=== PATIENT | female | born 1980 | race Caucasian/White ===

== ENCOUNTER → 2016-02-29 | Outpatient (CLI) | payer OTHER ==
[~2016-02-29] MED LIST: LANS30TA3 PO; NRT1/35 PO; OXYC-57 PO; OXYC10SO PO
== END | disposition home or self-care (01) ==
LOC: C.LAB 10:56
PROVIDERS: ATTEND Family Medicine
DX: K80.50 Calculus of bile duct without cholangitis or cholecystitis without obstruction (principal)

== ENCOUNTER → 2016-03-01 | Outpatient (CLI) | payer OTHER ==
--- NOTE | 2016-03-01 08:11 | DIAGNOSTIC IMAGING REPORT ---
ABDOMINAL ULTRASOUND, RIGHT UPPER QUADRANT HISTORY: Biliary colic. COMPARISON: Abdominal ultrasound October 10, 2014. FINDINGS: Liver morphology is normal. There is a 4 mm calcification within the right hepatic lobe. There is no biliary ductal dilatation. No gallstones are identified. There is a 7 mm gallbladder polyp. This is either stable or slightly increased in size since exam of October 10, 2014 when it measured approximately 5 mm. There is no gallbladder wall thickening. The pancreas is sonographically normal. There is no right hydronephrosis. IMPRESSION: 1. No gallstones or biliary ductal dilatation. 2. 7 mm gallbladder polyp. This is either stable or minimally increased in size since exam of October 10, 2014. This is likely benign but a follow-up ultrasound in one year is recommended.. Electronically signed by: Iftikhar Guy M.D. 03/01/2016 8:10 AM Dictated Date/Time: 03/01/2016 8:07 AM
== END | disposition home or self-care (01) ==
LOC: C.ULTR 06:40
PROVIDERS: ATTEND Family Medicine
DX: K80.50 Calculus of bile duct without cholangitis or cholecystitis without obstruction (principal); K82.4 Cholesterolosis of gallbladder

== ENCOUNTER → 2016-03-14 | Outpatient (CLI) | payer OTHER ==
[~2016-03-14] MED LIST changes: -LANS30TA3 PO; -NRT1/35 PO
--- NOTE | 2016-03-14 15:53 | DIAGNOSTIC IMAGING REPORT ---
MRI OF THE LUMBAR SPINE WITHOUT CONTRAST CLINICAL HISTORY: Lumbar pain radiating into right lower extremity. COMPARISON STUDY: No previous studies for comparison. TECHNIQUE: Utilizing a 1.5 Edelmira magnet and dedicated coil, multiplanar, multiecho imaging of the lumbar spine was performed without IV contrast. FINDINGS: For purposes of numbering on this exam, the L5-S1 disc space is assigned to axial image 27 of 30. Alignment of the lumbar spine is anatomic. Vertebral body heights are maintained. No marrow replacement is present. There is no intracanalicular mass or fluid collection. The conus terminates at the L1-L2 level. Paravertebral soft tissues are unremarkable. L1-2: The central canal and neural foramen are patent. L2-3: The central canal and neural foramen are patent. L3-4: The central canal and neural foramen are patent. L4-5: The central canal and neural foramen are patent L5-S1: The central canal and neural foramen are patent. IMPRESSION: Unremarkable MRI of the lumbar spine. No central canal or neural foraminal stenosis. No disc herniation. Electronically signed by: Iftikhar Guy M.D. 03/14/2016 3:51 PM Dictated Date/Time: 03/14/2016 3:45 PM
== END | disposition home or self-care (01) ==
LOC: C.MRI 14:41
PROVIDERS: ATTEND Orthopaedic Surgery Orthopaedic Surgery of the Spine
DX: M54.5 Low back pain (principal)

== ENCOUNTER → 2016-03-21 | Day surgery (SDC) | payer OTHER ==
[2016-03-12 15:36] VITALS: BMI 21.0
[2016-03-15 15:44] LABS: BASO % 0.1 %; BASO ABS # 0.01 K/uL (0-0.2); COMPLETE YES; EOS % 0.9 %; HEMATOCRIT 40.5 % (37-47); IG% 0.1 %; LYMPH % 39.1 %; MEAN CELL VOLUME 93.1 fL (80-100); MEAN CORPUSCULAR HEMOGLOBIN 31.7 pg (25-34); MEAN CORPUSCULAR HGB CONC 34.1 g/dl (32-36); MEAN PLATELET VOLUME 9.8 fL (7.4-10.4); MONO % 6.6 %; NEUT % 53.2 %; PLATELET COUNT 224 K/uL (130-400); RED BLOOD COUNT 4.35 M/uL (4.2-5.4); WHITE BLOOD COUNT 7.93 K/uL (4.8-10.8)
[2016-03-15 16:14] LABS: BUN/CREATININE RATIO 8.8 (10-20); CALCIUM 8.8 mg/dl (8.5-10.1); CREATININE 0.81 mg/dl (0.60-1.20); POTASSIUM 3.5 mmol/L (3.5-5.1)
[~2016-03-21] VITALS: Ht 172.7 cm; Wt 56.8 kg
[~2016-03-21] MED LIST changes: +CONRAY 60% 50 ML VIAL INSTIL ONE; +DEXAMETHASONE SOD INJ 4 MG/ML VIAL ONE; +EpHEDrine SULFATE INJ 50 MG/ML AMP ONE; +FENTANYL CITRATE INJ 50 MCG/1 ML 2 ML VIAL ONE; +GLYCOPYRROLATE INJ 0.2 MG/ML VIAL ONE; +KETOROLAC TROMETHAMINE 30 MG/ML VIAL IV. PRN; +LACTATED RINGER'S 1000ML 1,000 ML IV PRN; +LACTATED RINGER'S 1000ML 1,000 ML IV SCH; +LIDOCAINE HCL 2% 2 ML VIAL (20MG/ML) ONE; +LIDOCAINE/EPINEPHRINE 1% 20 ML VIAL INJ ONE; +METOCLOPRAMIDE HCL INJ 5 MG/ML 2 ML VIAL ONE; +MIDAZOLAM HCL 1 MG/ML 2ML VIAL ONE; +MoRPHine SULFATE 2 MG/ML CARP IV PRN; +NEOSTIGMINE METHYLSULFATE 5 MG/5 ML SYR ONE; +ONDANSETRON INJ 2 MG/ML 2 ML VIAL IV PRN; +ONDANSETRON INJ 2 MG/ML 2 ML VIAL ONE; +OXYCODONE HCL SOLN 5 MG/5 ML UDC PO PRN; +OXYCODONE/ACETAMINOPHEN 5-325 TAB PO PRN; +PHENYLEPHRINE HCL INJ 10 MG/ML VIAL ONE; +PROPOFOL IV EMULSION 10 MG/ML 20 ML VIAL IV ONE; +ROCURONIUM BROMIDE 10 MG/ML 5 ML VIAL ONE; +SCOPOLAMINE 1.5 MG TDSY TD ONE; +SUCCINYLCHOLINE CHLORIDE 20 MG/ML 10 ML VIAL IV ONE
[2016-03-21 07:17] VITALS: BP 97/71; PULSE 75; TEMP 36.7; O2SAT 99; Ht 172.7 cm; Wt 56.8 kg
--- NOTE | 2016-03-21 07:42 | History & Physical Bridge Note ---
H&P Re-Evaluation Bridge Note: I have examined the patient, reviewed the History & Physical and in the interval since the performance of the History & Physical I have noted the following changes of clinical significance: No changes noted SO at bedside
--- NOTE | 2016-03-21 09:30 | [facility] Post Operative Brief Note ---
Immediate Operative Summary Operative Date Mar 21, 2016. Pre-Operative Diagnosis Gallbladder polyp Post-Operative Diagnosis Same Procedure(s) Performed Laparoscopic Cholecystectomy with Cholangiogram Surgeon Dr Johansen [employer] Surgeon(s) Danie Abarca PA-C Estimated Blood Loss 5ML Findings cc Specimens A. gallbladder
--- NOTE | 2016-03-21 09:35 | Discharge Instructions ---
Discharge Instructions Visit Reason for Visit: Gallbladder Polyp Discharge Discharge Diagnosis / Problem: laparoscopic cholecystectomy Discharge Goals Goal(s): Decrease discomfort Activity Recommendations Activity Limitations: per Instructions/Follow-up section Lifting Limitations: no more than 10 pounds Shower/Bathe: tomorrow Driving or Machine Use: resume 3 days after discharge Anesthesia . Post Anesthesia Instructions: If you have had General Anesthesia or IV Sedation: * Do not drive today. * Resume driving when surgeon permits. * Do not make important decisions or sign legal documents today. * Call surgeon for: 1. Temperature elevations greater than 101 degrees F. 2. Uncontrollable pain. 3. Excessive bleeding. 4. Persistent nausea and vomiting. 5. Medication intolerance (nausea, vomiting or rash). * For nausea and vomiting use only clear liquids such as: tea, soda, bouillon until nausea subsides, then gradually increase diet as tolerated. * If you have any concerns or questions, call your surgeon's office. If physician is unavailable and it is an emergency, call 911 or go to the nearest emergency room. . Instructions / Follow-Up Instructions / Follow-Up Dr. Johansen in 1 week, call [phone] if you do not already have an appt Diet Recommendations Recommended Home Diet: no limitations Procedures Procedures Performed: Laparoscopic Cholecystectomy with Cholangiogram Pending Studies Studies pending at discharge: no Medical Emergencies . Who to Call and When: Medical Emergencies: If at any time you feel your situation is an emergency, please call 911 immediately. . Non-Emergent Contact Non-Emergency issues call your: Surgeon Call Non-Emergent contact if: you have a fever, temperature is above 101.5, your pain is not controlled . . "Provider Documentation" section prepared by Danie Abarca.
[2016-03-21] MEDS: FENTANYL CITRATE INJ 50 MCG/1 ML 2 ML VIAL IV PRN ×3 (10:01→10:11)
--- NOTE | 2016-03-21 10:01 | OPERATIVE REPORT ---
DATE OF OPERATION: 03/21/2016 PREOPERATIVE DIAGNOSIS: Chronic cholecystitis, polyp in the gallbladder. POSTOPERATIVE DIAGNOSIS: Same. PROCEDURE: Laparoscopic cholecystectomy, intraoperative cholangiogram. SURGEON: Dr. Johansen. MECHANICAL PROJECT ENGINEER: Emmanuel Abarca PA-C. OPERATION AND FINDINGS: SUMMARY: After induction of general endotracheal anesthesia, the patient's abdomen was prepped with Betadine solution and properly draped. A small incision made transversely supraumbilically sufficient enough to place a Veress needle followed by CO2 followed by 5 mm trocar. Point of entry inspected and no injury identified. Under direct visualization, we then looked at the right upper quadrant and placed a 5 mm epigastric port with preemptive local analgesia 1% Xylocaine without epinephrine and 2 other subcostal ports, 1 just lateral to the rectus abdominis, 1 towards the flank. The liver was grossly normal. We took pictures of this area. We also placed a camera in subcostal area to look at the umbilical entry site. There were no adhesions there. The pelvis was free of any gross pathology, some pictures were taken at the patient's request. At this point then we elevated the liver. We identified the gallbladder. The wall was thickened more than normal. As we elevated up the distal portion of the gallbladder towards the triangle of Calot had multiple adhesions, some of these were quite thickened to the omentum. These were taken down by sharp and blunt dissection. Once we were able then to identify and create a window in the triangle of Calot, identified the lymph node. We identified the artery and doubly clipped it proximally and once distally and divided. This was well taken off right at the edge of the gallbladder. Then the cystic duct we tried to dissect out, it was very scarred in. We stayed close to the gallbladder. We were able then to create a window more posteriorly, finally able to place the clips. A small opening in the cystic duct was made at its takeoff. A #4 urethral catheter transversing abdominal wall was positioned in the cystic duct. Serial x-rays were taken. First of all showed a corkscrew cystic duct right at the beginning and we could see the common bile duct distally without any obstruction. We could feel the proximal end without any evidence of any obstruction. I could not feel the hepatic bifurcation significant enough, but what we could see may have been a little bit just fluid imaging, it was a little narrowed but this was well up into the bifurcation. At this point we removed the cystic duct catheter and doubly clipped the cystic duct, then took out the gallbladder in the antegrade fashion using electrocautery, leaving the posterior peritoneum. We never entered really the liver parenchyma at all. Once the gallbladder was elevated almost off the liver another picture was taken. We then amputated the gallbladder off the liver and placed it in an Endopouch and taken out intact through the epigastric port. At this point, suctioned out subhepatically and suprahepatically, hemostasis was excellent. We placed a camera again in the subcostal port as we took out the umbilical trocar and there was no bleeding appreciated. No bleeding was appreciated with any of the port sites. I did place an 0 Vicryl suture as 0 vycril suture in the epigastric area even though we used a 5 mm trocar, 4-0 Monocryl and Steri-Strips applied. The procedure was tolerated well by the patient and was taken to recovery room in good condition. I attest to the content of the Intraoperative Record and any orders documented therein. Any exceptions are noted below. CLIFF
--- NOTE | 2016-03-21 10:10 | DIAGNOSTIC IMAGING REPORT ---
INTRAOPERATIVE RADIOGRAPHS CLINICAL HISTORY: Intraoperative cholangiogram. Fluoroscopy time: 7 seconds. FINDINGS: 5 spot fluoroscopic views of the right upper quadrant from an intravenous cholangiogram are presented. Correlation is made with abdominal ultrasound dated 03/01/2016. The gallbladder surgically absent. There is smooth contrast opacification of the common bile duct which is normal in caliber. There are no filling defects identified to suggest choledocholithiasis. There is free spillage of contrast into the duodenum. There is mild focal dilatation of the common hepatic duct. Focal narrowing is suggested at the junction of the right and left hepatic ducts. The intrahepatic bile ducts are normal in caliber. IMPRESSION: 1. There is no evidence of choledocholithiasis. 2. There is focal cystic dilatation of the common hepatic duct. This may represent a choledochal cyst. 3. There is questionable focal narrowing of the common hepatic duct at the junction of the right and left hepatic ducts. This is of indeterminant significance. Consider follow-up with ERCP for further assessment and to exclude the possibility of an underlying mass lesion. Electronically signed by: Pj Encarnacion M.D. 03/21/2016 10:08 AM Dictated Date/Time: 03/21/2016 10:04 AM
--- NOTE | 2016-03-21 10:24 | Anesthesiology Progress Note ---
Anesthesia Post Op Note Date & Time Mar 21, 2016 at 10:24 Vital Signs Pain Intensity: 5.0 Vital Signs Past 12 Hours Date Time Temp Pulse Resp B/P Pulse Ox O2 Delivery O2 Flow Rate FiO2 03/21/16 10:10 88 12 106/61 96 Room Air 03/21/16 10:00 96 18 114/64 100 Mask 10 03/21/16 09:50 108 11 115/65 100 Mask 10 03/21/16 09:43 36.7 118 16 114/67 100 Mask 10 03/21/16 07:17 36.7 75 20 97/71 99 Room Air Notes Mental Status: alert / awake / arousable, participated in evaluation Pt Amnestic to Procedure: Yes Nausea / Vomiting: adequately controlled Pain: adequately controlled, improving with treatment Airway Patency, RR, SpO2: stable & adequate BP & HR: stable & adequate Hydration State: stable & adequate Anesthetic Complications: no major complications apparent Pt doing well. Pain now tolerable.
[2016-03-21 10:40] VITALS: BP 120/60; PULSE 99; TEMP 36.8; O2SAT 98
[2016-03-21 11:10] VITALS: BP_SYST 115; BP_SYST 117; BP_DIAS 68; BP_DIAS 71; PULSE 88; PULSE 99; TEMP 36.5; TEMP 36.6; O2SAT 98; O2SAT 99
[2016-03-21 11:40] VITALS: BP 115/68; PULSE 88; TEMP 36.6; O2SAT 98
[2016-03-21 12:20] VITALS: BP 118/71; PULSE 86; TEMP 36.6; O2SAT 97
== END | disposition home or self-care (01) ==
LOC: C.ACU 06:48
PROVIDERS: ATTEND Surgery
DX: K82.4 Cholesterolosis of gallbladder (principal); K81.1 Chronic cholecystitis; N80.9 Endometriosis, unspecified; N87.0 Mild cervical dysplasia; Z82.49 Family history of ischemic heart disease and other diseases of the circulatory system; Z83.518 Family history of other specified eye disorder; K21.9 Gastro-esophageal reflux disease without esophagitis; N83.209 Unspecified ovarian cyst, unspecified side

== ENCOUNTER → 2016-04-09 | Outpatient (CLI) | payer OTHER ==
[~2016-04-09] MED LIST changes: -CONRAY 60% 50 ML VIAL INSTIL ONE; -DEXAMETHASONE SOD INJ 4 MG/ML VIAL ONE; -EpHEDrine SULFATE INJ 50 MG/ML AMP ONE; -FENTANYL CITRATE INJ 50 MCG/1 ML 2 ML VIAL ONE; -GLYCOPYRROLATE INJ 0.2 MG/ML VIAL ONE; -KETOROLAC TROMETHAMINE 30 MG/ML VIAL IV. PRN; -LACTATED RINGER'S 1000ML 1,000 ML IV PRN; -LACTATED RINGER'S 1000ML 1,000 ML IV SCH; -LIDOCAINE HCL 2% 2 ML VIAL (20MG/ML) ONE; -LIDOCAINE/EPINEPHRINE 1% 20 ML VIAL INJ ONE; -METOCLOPRAMIDE HCL INJ 5 MG/ML 2 ML VIAL ONE; -MIDAZOLAM HCL 1 MG/ML 2ML VIAL ONE; -MoRPHine SULFATE 2 MG/ML CARP IV PRN; -NEOSTIGMINE METHYLSULFATE 5 MG/5 ML SYR ONE; -ONDANSETRON INJ 2 MG/ML 2 ML VIAL IV PRN; -ONDANSETRON INJ 2 MG/ML 2 ML VIAL ONE; -OXYC-57 PO; -OXYCODONE HCL SOLN 5 MG/5 ML UDC PO PRN; -OXYCODONE/ACETAMINOPHEN 5-325 TAB PO PRN; -PHENYLEPHRINE HCL INJ 10 MG/ML VIAL ONE; -PROPOFOL IV EMULSION 10 MG/ML 20 ML VIAL IV ONE; -ROCURONIUM BROMIDE 10 MG/ML 5 ML VIAL ONE; -SCOPOLAMINE 1.5 MG TDSY TD ONE; -SUCCINYLCHOLINE CHLORIDE 20 MG/ML 10 ML VIAL IV ONE
--- NOTE | 2016-04-09 15:40 | DIAGNOSTIC IMAGING REPORT ---
CT OF THE CHEST WITHOUT IV CONTRAST CLINICAL HISTORY: Lung nodule. COMPARISON STUDY: Chest CT October 13, 2009. CT DOSE: 303.79 mGy.cm TECHNIQUE: Axial images of the chest were obtained without IV contrast. Images were reviewed in the axial, sagittal, and coronal planes. IV contrast was not administered for this examination. FINDINGS: No enlarged axillary, mediastinal or hilar lymph nodes are present. The size of the heart is normal. There is no pericardial effusion. Central airways are patent. There is no consolidation to suggest pneumonia. Mild biapical opacities suggest scarring. A 4 mm subpleural nodule within the left lower lobe shown on image 222. In [address] of October 13, 2009. A 3 mm subpleural nodule within the left lower lobe shown on image 106 is also unchanged. No new nodules are identified. There is no pneumothorax or pleural effusion. The bony thorax is unremarkable. A calcified granuloma within the spleen is noted as well as a calcified granuloma within the right hepatic lobe. The gallbladder is surgically absent. IMPRESSION: No change in 2 left lower lobe subpleural nodules since CT of October 13, 2009. Stability over this time period is consistent with a benign etiology. Electronically signed by: Iftikhar Guy M.D. 04/09/2016 3:39 PM Dictated Date/Time: 04/09/2016 3:33 PM
== END | disposition home or self-care (01) ==
LOC: C.CTS 15:21
PROVIDERS: ATTEND Family Medicine
DX: R91.8 Other nonspecific abnormal finding of lung field (principal)

== ENCOUNTER → 2016-06-06 | Outpatient (CLI) | payer OTHER | END | disposition home or self-care (01) | LOC: C.PAPS 10:58 | PROVIDERS: ATTEND Obstetrics & Gynecology | DX: Z12.4 Encounter for screening for malignant neoplasm of cervix (principal); Z87.42 Personal history of other diseases of the female genital tract ==

== ENCOUNTER → 2017-03-12 | Outpatient (CLI) | payer OTHER ==
[2017-03-12 14:41] LABS: HEMOGLOBIN 14.7 g/dL (12.0-16.0); MEAN CELL VOLUME 91.3 fL (80-100); MEAN CORPUSCULAR HEMOGLOBIN 31.2 pg (25-34); MEAN CORPUSCULAR HGB CONC 34.2 g/dl (32-36); MEAN PLATELET VOLUME 9.6 fL (7.4-10.4); PLATELET COUNT 252 K/uL (130-400); RED CELL DISTRIBUTION WIDTH CV 12.6 % (11.5-14.5); RED CELL DISTRIBUTION WIDTH SD 42.1 fL (36.4-46.3); WHITE BLOOD COUNT 7.74 K/uL (4.8-10.8)
[2017-03-12 15:06] LABS: ALBUMIN 4.2 gm/dl (3.4-5.0); ALT/SGPT 31 U/L (12-78); BLOOD UREA NITROGEN 9 mg/dl (7-18); CALCIUM 9.6 mg/dl (8.5-10.1); CARBON DIOXIDE 29 mmol/L (21-32); CREATININE 0.87 mg/dl (0.60-1.20); GLUCOSE 81 mg/dl (70-99); POTASSIUM 3.7 mmol/L (3.5-5.1); SODIUM 139 mmol/L (136-145)
[2017-03-12 15:16] LABS: ALKALINE PHOSPHATASE 86 U/L (45-117); AST/SGOT 23 U/L (15-37); TOTAL PROTEIN 7.4 gm/dl (6.4-8.2)
== END | disposition home or self-care (01) ==
LOC: C.LAB 13:32
PROVIDERS: ATTEND Physician Assistant
DX: I73.00 Raynaud's syndrome without gangrene (principal); R07.9 Chest pain, unspecified; L50.9 Urticaria, unspecified

== ENCOUNTER → 2017-03-14 | Outpatient (CLI) | payer OTHER ==
--- NOTE | 2017-03-14 13:33 | EXERCISE STRESS ECHO ---
*NOTICE TO RECEIVING [employer] This information is strictly Confidential and protected under [place] law. [place] law prohibits you from making any further disclosure of this information unless further disclosure is expressly permitted by the written consent of the person to whom it pertains or is authorized by law. A general authorization for the release of medical or other information is not sufficient for this purpose. Hospital accepts no responsibility if the information is made available to any other person, INCLUDING THE PATIENT. Interpretation Summary * Name: MARTINEZ CHACKO Study Date: 03/14/2017 09:35 AM BP: 89/72 mmHg * Patient Location: [facility], [place], [facility] HR: 99 * : 1980 (M/d/yyyy) Gender: Female Height: 66 in * Age: 36 yrs Ethnicity: [place] Weight: 136 lb * Ordering Physician: Nisa Chao * Referring Physician: Nisa Chao PA-C * Performed By: Martha Magaña RDCS * * Reason For Study: Chest Pain * BSA: 1.7 m2 * -- Conclusions -- * Nonischemic exercise stress test. * No arrhythmias. * Normal HR and BP response to exercise. * Average exercise tolerance. * No symptoms. * At rest, structurally normal heart. Procedure Details * ECHOEX, CPT #[id number] * ECHO DOPPLER, CPT #[id number] * ECHO COLOR FLOW, CPT #[id number] Left Ventricle * The left ventricle is normal in size. * There is normal left ventricular wall thickness. * Ejection Fraction = 55-60%. * Left ventricular systolic function is normal. * No segmental left ventricular wall motion abnormalities are noted. * The left ventricular wall motion is normal. * Resting wall motion: Normal. Stress wall motion: Appropriate increase in Left ventricular systolic function and decrease in cavity size. No stress induced segmental wall motion abnormalities. Right Ventricle * The right ventricular cavity size is normal (basal dimension <4.2 cm in right ventricular apical 4-chamber view). * The right ventricular systolic function is normal as assessed by tricuspid annular plane systolic excursion (TAPSE) (normal >1.5 cm). Atria * The left atrial size is normal. * Right atrial size is normal. * No ASD detected; PFO is not assessed. Mitral Valve * The mitral valve is normal in structure and function. Tricuspid Valve * The tricuspid valve is normal in structure and function. Aortic Valve * The aortic valve is normal in structure and function. Pulmonic Valve * The pulmonary valve is not well seen, but the Doppler examination is normal without significant regurgitation or stenosis. Great Vessels * The aortic root is normal size. Pericardium * There is no pericardial effusion. Stress Parameters * Normal baseline electrocardiogram. * Stress ECG: No ST changes. No arrhythmias. * No arrhythmia were noted with stress. * The stress portion of this study was personally supervised by the undersigned interpreting physician. * Rest heart rate was '99' BPM. * Rest blood pressure was '89/72' * Maximum heart rate achieved was 190 bpm. * Maximum heart rate was 102 % of maximum age-predicted heart rate. * Maximum blood pressure was '106/70' * Total exercise time was '10:06' * Maximum exercise MET level achieved was '11.80' METS * Maximum treadmill speed was '4.20' miles per hour. * Maximum treadmill elevation was '16.00'% grade. Left Ventricular Diastolic Function * Pulse wave TDI of the anterior and posterior mitral annulas demonstrates normal LV relaxation MMode 2D Measurements and Calculations IVSd 0.68 cm IVSs 0.76 cm LVIDd 3.7 cm LVIDs 2.5 cm LVPWd 0.70 cm LVPWs 0.97 cm IVS/LVPW 0.96 FS 33.1 % EDV(Teich) 58.8 ml ESV(Teich) 22.0 ml EF(Teich) 62.5 % EDV(cubed) 51.4 ml ESV(cubed) 15.4 ml EF(cubed) 70.0 % % IVS thick 12.7 % % LVPW thick 37.7 % LV mass(C)d 67.9 grams LV mass(C)dI 40.0 grams/m\S\2 LV mass(C)s 50.1 grams LV mass(C)sI 29.5 grams/m\S\2 SV(Teich) 36.7 ml SI(Teich) 21.6 ml/m\S\2 SV(cubed) 36.0 ml SI(cubed) 21.2 ml/m\S\2 Ao root diam 2.0 cm Ao root area 3.2 cm\S\2 LA dimension 2.3 cm LA/Ao 1.1 LVAd ap4 27.4 cm\S\2 LVLd ap4 7.9 cm EDV(MOD-sp4) 79.2 ml EDV(sp4-el) 80.9 ml LVAs ap4 16.4 cm\S\2 LVLs ap4 6.5 cm ESV(MOD-sp4) 34.3 ml ESV(sp4-el) 35.1 ml EF(MOD-sp4) 56.7 % EF(sp4-el) 56.6 % LVAd ap2 21.5 cm\S\2 LVLd ap2 8.0 cm EDV(MOD-sp2) 51.3 ml EDV(sp2-el) 49.0 ml LVAs ap2 10.8 cm\S\2 LVLs ap2 6.3 cm ESV(MOD-sp2) 16.3 ml ESV(sp2-el) 15.9 ml EF(MOD-sp2) 68.2 % EF(sp2-el) 67.4 % LVLd %diff 1.3 % EDV(MOD-bp) 63.8 ml LVLs %diff -4.58 % ESV(MOD-bp) 24.0 ml EF(MOD-bp) 62.3 % SV(MOD-sp4) 44.9 ml SI(MOD-sp4) 26.5 ml/m\S\2 SV(MOD-sp2) 35.0 ml SI(MOD-sp2) 20.6 ml/m\S\2 SV(MOD-bp) 39.8 ml SI(MOD-bp) 23.4 ml/m\S\2 SV(sp4-el) 45.8 ml SI(sp4-el) 27.0 ml/m\S\2 SV(sp2-el) 33.0 ml SI(sp2-el) 19.5 ml/m\S\2 Doppler Measurements and Calculations MV E max ahmet 87.9 cm/sec MV A max ahmet 53.4 cm/sec MV E/A 1.6 MV dec time 0.26 sec Ao V2 max 120.1 cm/sec Ao max PG 5.8 mmHg Ao max PG (full) 0.96 mmHg LV V1 max PG 4.8 mmHg LV V1 max 109.6 cm/sec PA V2 max 92.2 cm/sec PA max PG 3.4 mmHg TR max ahmet 141.9 cm/sec
== END | disposition home or self-care (01) ==
LOC: C.CPL 09:26
PROVIDERS: ATTEND Physician Assistant
DX: R07.9 Chest pain, unspecified (principal)

== ENCOUNTER → 2017-06-09 | Outpatient (CLI) | payer OTHER | END | disposition home or self-care (01) | LOC: C.PAPS 10:28 | PROVIDERS: ATTEND Obstetrics & Gynecology | DX: Z12.4 Encounter for screening for malignant neoplasm of cervix (principal) ==